=== PATIENT | male | born 1930 | race Caucasian/White ===

== ENCOUNTER 2017-07-30 23:45 | Inpatient (IN) | payer MEDICARE, OTHER ==
[~2017-07-30] VITALS: Ht 177.8 cm
[2017-07-31] MEDS ORDERED: SODIUM CHLORIDE 0.9% 1000ML 2,000 ML IV ONE (00:25)
[2017-07-31 00:39] LABS: CARBON DIOXIDE 30 mmol/L (21-32); CHLORIDE 100 mmol/L (101-111); CREATININE 1.3 mg/dL (0.5-1.5); GLOMERULAR FILTR. RATE CALC 56 mL/min (>60); GLUCOSE,RANDOM 103 mg/dL (70-105); POTASSIUM 4.6 mmol/L (3.5-5.1); SODIUM SERUM 137 mmol/L (136-145); UREA NITROGEN, BLOOD 18 mg/dL (7-18)
[2017-07-31 00:44] LABS: BASOPHILS % (AUTO) 0.5 % (0.0-5.0); EOSINOPHILS % (AUTO) 0.5 % (0.0-8.0); LYMPHOCYTES % (AUTO) 43.5 % (21.0-51.0); MEAN CORPUSCULAR HEMOGLOBIN 31.7 pg (27.0-33.0); MEAN CORPUSCULAR HGB CONC 33.5 g/dL (32.0-36.0); MEAN CORPUSCULAR VOLUME 94.4 fL (79-99); MONOCYTES % (AUTO) 2.5 % (3.0-13.0); PLATELET COUNT (AUTO) 155 K/uL (130-400); RED BLOOD CELL COUNT(AUTO) 4.24 MIL/uL (4.50-6.20); WHITE BLOOD COUNT (AUTO) 21.9 K/uL (4.8-10.8)
[2017-07-31 00:51] LABS: INR 0.97 (0.85-1.15); PARTIAL THROMBOPLASTIN TIME 24.5 SEC (26.3-35.5); PROTHROMBIN TIME 10.2 SEC (9.6-11.6)
[2017-07-31 00:53] LABS: ALANINE AMINOTRANSFERASE 31 U/L (12-78); ALBUMIN 3.8 g/dL (3.5-5.0); ASPARTATE AMINOTRANSFERASE 32 U/L (10-37); BILIRUBIN,TOTAL 0.5 mg/dL (0.2-1.0); CREATINE KINASE MB 1.4 ng/mL (0.5-3.6); CREATINE KINASE, TOTAL 102 U/L (21-232); MYOGLOBIN 52 ng/mL (10-92); TOTAL PROTEIN, SERUM 7.8 g/dL (6.0-8.3); TROPONIN I < 0.04 ng/mL (0.00-0.06)
[2017-07-31 01:51] LABS: APPEARANCE,URINE Clear (CLEAR); BILIRUBIN,URINE Negative (NEGATIVE); COLOR,URINE Yellow (YELLOW); GLUCOSE, URINE (UA) Negative (NEGATIVE); KETONES,URINE Negative (NEGATIVE); LEUKOCYTE ESTERASE ,URINE Negative (NEGATIVE); NITRATE,URINE Negative (NEGATIVE); OCCULT BLOOD,URINE Trace (NEGATIVE); PROTEIN,URINE POS 1+ (NEGATIVE); UROBILINOGEN,URINE 0.2 mg/dL (0.2-1.0)
[2017-07-31 02:13] LABS: BACTERIA,URINE None Seen /HPF (None Seen); MUCUS,URINE Moderate LPF (None Seen); RBC,URINE 0-1 /HPF (0-1); SQUAMOUS EPITHELIAL CELL,UR Moderate /HPF (0-2)
[2017-07-31] MEDS ORDERED: CEFTRIAXONE SODIUM 1 GM ONE (02:28)
[2017-07-31] MEDS ORDERED: SODIUM CHLORIDE 0.9% 500ML 500 ML IV ONE (02:28)
[2017-07-31] MEDS ORDERED: METHYLPREDNISOLONE SOD SUCC 40MG/ML 1ML ONE (02:53)
[2017-07-31] MEDS ORDERED: IPRATROPIUM/ALBUTEROL SULFATE 3 ML SOLUTION IH ONE (03:07)
[2017-07-31] MEDS ORDERED: LEVOFLOXACIN 500 MG/D5W 100 ML 100 ML ONE (03:58)
[2017-07-31] MEDS ORDERED: ACETAMINOPHEN 325 MG TAB ONE (04:05)
[2017-07-31] MEDS ORDERED: ACETAMINOPHEN-CODEINE ELIXIR 5 ML UDCUP PO PRN (05:15)
[2017-07-31] MEDS ORDERED: SODIUM CHLORIDE 0.9% 1000ML 1,000 ML IV SCH (05:15)
[2017-07-31] MEDS ORDERED: ACETAMINOPHEN 325 MG TAB PO PRN (05:15)
[2017-07-31 05:18] VITALS: BP 149/89
[2017-07-31] MEDS: HEPARIN SODIUM 5000UNIT/ML 1ML VIAL SQ SCH ×3 (05:37→22:51)
[2017-07-31] MEDS: IPRATROPIUM/ALBUTEROL SULFATE 3 ML SOLUTION IH SCH ×6 (06:41→23:28)
[2017-07-31 07:00] VITALS: BP 146/82
[2017-07-31 07:08] LABS: HEMATOCRIT 36.8 % (42-54); MEAN CORPUSCULAR HEMOGLOBIN 31.6 pg (27.0-33.0); MEAN CORPUSCULAR HGB CONC 33.7 g/dL (32.0-36.0); MEAN CORPUSCULAR VOLUME 93.9 fL (79-99); PLATELET COUNT (AUTO) 124 K/uL (130-400); RED BLOOD CELL COUNT(AUTO) 3.92 MIL/uL (4.50-6.20); RED CELL DISTRIBUTION WIDTH 13.8 % (11.0-15.5)
[2017-07-31 07:21] LABS: CREATININE 1.3 mg/dL (0.5-1.5); POTASSIUM 5.2 mmol/L (3.5-5.1)
[2017-07-31] MEDS: FAMOTIDINE 20MG TAB 20 MG TAB PO SCH ×2 (09:31→20:44)
[2017-07-31] MEDS: METHYLPREDNISOLONE SOD SUCC 125MG/2ML VIAL IVP SCH ×2 (09:31→15:30)
[2017-07-31 11:00] VITALS: BP 175/96
[2017-07-31] MEDS ORDERED: FURO20TA4 PO (12:24)
[2017-07-31] MEDS ORDERED: FINA1TAB13 PO (12:24)
[2017-07-31] MEDS ORDERED: LISI40TA4 PO (12:24)
[2017-07-31] MEDS ORDERED: ALLO300T2 PO (12:24)
[2017-07-31] MEDS ORDERED: TAMS0.4C32 PO (12:24)
[2017-07-31] MEDS ORDERED: MULT-1203 PO (12:24)
[2017-07-31] MEDS ORDERED: ATEN25TA PO (12:24)
[2017-07-31] MEDS ORDERED: SIMV10TA6 PO (12:24)
[2017-07-31 16:22] VITALS: BP 163/83
[2017-07-31] MEDS ORDERED: FINA5TAB41 PO (16:26)
[2017-07-31] MEDS ORDERED: MULT1TAB14 PO (16:26)
[2017-07-31 19:30] VITALS: BP 166/85
[2017-07-31] MEDS: TAMSULOSIN HCL 0.4 MG CAP.ER.24H PO SCH (20:43)
[2017-07-31] MEDS: ATORVASTATIN CALCIUM 10 MG TABLET PO SCH (20:43)
[2017-07-31] MEDS: IPRATROPIUM 0.5 MG/2.5 ML INH IH SCH (23:28)
[2017-07-31] MEDS: ALBUTEROL SULFATE 0.083% 2.5 MG/3 ML INH IH SCH (23:28)
[2017-08-01] VITALS (8 sets, daily range): BP systolic 152–186; BP diastolic 76–97
[2017-08-01] MEDS: LEVOFLOXACIN 500 MG/D5W 100 ML 100 ML IV SCH (05:25)
[2017-08-01 06:02] LABS: HEMATOCRIT 34.2 % (42-54); MEAN CORPUSCULAR HEMOGLOBIN 32.1 pg (27.0-33.0); MEAN CORPUSCULAR HGB CONC 34.1 g/dL (32.0-36.0); MEAN CORPUSCULAR VOLUME 94.1 fL (79-99); PLATELET COUNT (AUTO) 136 K/uL (130-400); RED BLOOD CELL COUNT(AUTO) 3.63 MIL/uL (4.50-6.20); RED CELL DISTRIBUTION WIDTH 14.2 % (11.0-15.5); WHITE BLOOD COUNT (AUTO) 22.6 K/uL (4.8-10.8)
[2017-08-01 06:17] LABS: ALBUMIN 2.9 g/dL (3.5-5.0); B-TYPE NATRIURETIC PEPTIDE 467 pg/mL (0-100); BILIRUBIN,TOTAL 0.7 mg/dL (0.2-1.0); CREATININE 1.3 mg/dL (0.5-1.5); POTASSIUM 4.2 mmol/L (3.5-5.1); TOTAL PROTEIN, SERUM 6.6 g/dL (6.0-8.3)
[2017-08-01] MEDS: HEPARIN SODIUM 5000UNIT/ML 1ML VIAL SQ SCH ×3 (06:32→22:34)
[2017-08-01] MEDS: IPRATROPIUM/ALBUTEROL SULFATE 3 ML SOLUTION IH SCH ×3 (06:44→18:00)
[2017-08-01] MEDS: LISINOPRIL 40 MG TABLET PO SCH (08:23)
[2017-08-01] MEDS: FUROSEMIDE 20 MG TABLET PO SCH (08:24)
[2017-08-01] MEDS: MULTIVITAMIN TABLET PO SCH (08:24)
[2017-08-01] MEDS: FAMOTIDINE 20MG TAB 20 MG TAB PO SCH ×2 (08:24→20:47)
[2017-08-01] MEDS: PREDNISONE 20 MG TABLET PO SCH (08:24)
[2017-08-01] MEDS: ATENOLOL 25 MG TABLET PO SCH (08:24)
[2017-08-01] MEDS: ZEAXANT PO SCH (08:30)
[2017-08-01] MEDS: MULTIVIT MIN PO SCH (08:30)
[2017-08-01] MEDS: LUTEIN PO SCH (08:30)
[2017-08-01] MEDS: [UNRECOGNIZED DRUG - OTHER] PO SCH (08:30)
[2017-08-01] MEDS: ALBUTEROL SULFATE 0.083% 2.5 MG/3 ML INH IH SCH ×2 (18:30→23:43)
[2017-08-01] MEDS: IPRATROPIUM 0.5 MG/2.5 ML INH IH SCH ×2 (18:30→23:43)
[2017-08-01] MEDS ORDERED: HYDRALAZINE HCL 20 MG/ML VIAL IV PRN (18:45)
[2017-08-01] MEDS: TAMSULOSIN HCL 0.4 MG CAP.ER.24H PO SCH (20:54)
[2017-08-01] MEDS: ATORVASTATIN CALCIUM 10 MG TABLET PO SCH (20:54)
[2017-08-02] VITALS: BP 166/93
[2017-08-02] MEDS: LISINOPRIL 40 MG TABLET PO SCH (04:01)
[2017-08-02] MEDS: FUROSEMIDE 20 MG TABLET PO SCH (04:01)
[2017-08-02] MEDS: ATENOLOL 25 MG TABLET PO SCH (04:01)
[2017-08-02] MEDS: LEVOFLOXACIN 500 MG/D5W 100 ML 100 ML IV SCH (04:26)
[2017-08-02 04:33] LABS: HEMATOCRIT 35.1 % (42-54); MEAN CORPUSCULAR HEMOGLOBIN 32.1 pg (27.0-33.0); MEAN CORPUSCULAR HGB CONC 34.4 g/dL (32.0-36.0); MEAN CORPUSCULAR VOLUME 93.4 fL (79-99); PLATELET COUNT (AUTO) 144 K/uL (130-400); RED BLOOD CELL COUNT(AUTO) 3.75 MIL/uL (4.50-6.20); WHITE BLOOD COUNT (AUTO) 22.4 K/uL (4.8-10.8)
[2017-08-02 04:47] LABS: CREATININE 1.3 mg/dL (0.5-1.5); POTASSIUM 4.2 mmol/L (3.5-5.1)
[2017-08-02] MEDS: ALBUTEROL SULFATE 0.083% 2.5 MG/3 ML INH IH SCH ×2 (06:01→11:44)
[2017-08-02] MEDS: IPRATROPIUM 0.5 MG/2.5 ML INH IH SCH ×2 (06:01→11:44)
[2017-08-02] MEDS: HEPARIN SODIUM 5000UNIT/ML 1ML VIAL SQ SCH (06:07)
[2017-08-02 08:00] VITALS: BP 167/88
[2017-08-02] MEDS: LUTEIN PO SCH (08:02)
[2017-08-02] MEDS: [UNRECOGNIZED DRUG - OTHER] PO SCH (08:02)
[2017-08-02] MEDS: ZEAXANT PO SCH (08:02)
[2017-08-02] MEDS: MULTIVIT MIN PO SCH (08:02)
[2017-08-02] MEDS: FAMOTIDINE 20MG TAB 20 MG TAB PO SCH (08:37)
[2017-08-02] MEDS: PREDNISONE 20 MG TABLET PO SCH (08:37)
[2017-08-02] MEDS: MULTIVITAMIN TABLET PO SCH (08:37)
== END 2017-08-02 12:33 | disposition home or self-care (01) | DRG 871 ==
LOC: EDH 23:45 → EDHIP 07-31 03:04 → OBSVTOIN 07-31 03:04 → 3DH 07-31 03:36
PROVIDERS: ADMIT Internal Medicine Nephrology; ATTEND Internal Medicine Nephrology
DX: A41.9 Sepsis, unspecified organism (principal); J18.9 Pneumonia, unspecified organism; J96.21 Acute and chronic respiratory failure with hypoxia; J44.0 Chronic obstructive pulmonary disease with (acute) lower respiratory infection; J44.1 Chronic obstructive pulmonary disease with (acute) exacerbation; Z99.81 Dependence on supplemental oxygen; E78.5 Hyperlipidemia, unspecified; I10 Essential (primary) hypertension; Z87.891 Personal history of nicotine dependence; H35.30 Unspecified macular degeneration; N40.0 Benign prostatic hyperplasia without lower urinary tract symptoms; Z60.2 Problems related to living alone; Z85.828 Personal history of other malignant neoplasm of skin; Z88.8 Allergy status to other drugs, medicaments and biological substances; Z82.49 Family history of ischemic heart disease and other diseases of the circulatory system
CPT/HCPCS: 36415; 71045; 80048; 80053; 81001; 82550; 82553; 83605; 83874; 83880; 84484; 85025; 85027; 85610; 85730; 87040; 87071; 87088; 87106; 87205; 93005; 94640; 94664; 99291; J0360; J0696; J1644; J1956; J2920; J2930; J7030; J7040

== ENCOUNTER 2017-10-08 08:48 | Emergency (ER) | payer MEDICARE ==
[~2017-10-08 08:48] MED LIST: ALLO300T2 PO; ATEN25TA PO; FINA5TAB41 PO; FURO20TA4 PO; LISI40TA4 PO; MULT-1203 PO; MULT1TAB14 PO; SIMV10TA6 PO; TAMS0.4C32 PO
== END 2017-10-08 10:12 | disposition home or self-care (01) ==
LOC: EDH 08:48
DX: S41.112A Laceration without foreign body of left upper arm, initial encounter (principal); I10 Essential (primary) hypertension; J44.9 Chronic obstructive pulmonary disease, unspecified; Z87.891 Personal history of nicotine dependence; Z88.1 Allergy status to other antibiotic agents; X58.XXXA Exposure to other specified factors, initial encounter; Y93.89 Activity, other specified; Y92.89 Other specified places as the place of occurrence of the external cause; Y99.8 Other external cause status
CPT/HCPCS: 99282

== ENCOUNTER 2018-06-26 07:08 | Observation (INO) | payer MEDICARE ==
[~2018-06-26] VITALS: Ht 177.8 cm; Wt 90.8 kg
[2018-06-26 07:47] LABS: BASOPHILS % (AUTO) 0.6 % (0.0-5.0); HEMATOCRIT 37.4 % (42-54); MEAN CORPUSCULAR HEMOGLOBIN 30.9 pg (27.0-33.0); MEAN CORPUSCULAR HGB CONC 33.4 g/dL (32.0-36.0); MEAN CORPUSCULAR VOLUME 92.6 fL (79-99); MONOCYTES % (AUTO) 3.6 % (3.0-13.0); NEUTROPHILS % (AUTO) 54.8 % (40.0-77.0); PLATELET COUNT (AUTO) 134 K/uL (130-400); RED BLOOD CELL COUNT(AUTO) 4.04 MIL/uL (4.50-6.20); RED CELL DISTRIBUTION WIDTH 14.8 % (11.0-15.5); WHITE BLOOD COUNT (AUTO) 14.7 K/uL (4.8-10.8)
[2018-06-26] MEDS ORDERED: PREDNISONE 20 MG TABLET ONE (08:01)
[2018-06-26 08:09] LABS: INR 1.03 (0.85-1.15); PARTIAL THROMBOPLASTIN TIME 31.8 SEC (26.3-35.5); PROTHROMBIN TIME 10.8 SEC (9.6-11.6)
[2018-06-26 08:20] LABS: CREATININE 1.4 mg/dL (0.5-1.5); POTASSIUM 4.4 mmol/L (3.5-5.1)
[2018-06-26] MEDS ORDERED: IPRATROPIUM/ALBUTEROL SULFATE 3 ML SOLUTION IH ONE ×4 (08:22→21:30)
[2018-06-26 08:33] LABS: ALBUMIN 3.1 g/dL (3.5-5.0); TOTAL PROTEIN, SERUM 7.5 g/dL (6.0-8.3)
[2018-06-26] MEDS ORDERED: LEVOFLOXACIN 750 MG/D5W 150 ML 150 ML ONE (09:06)
[2018-06-26 09:28] LABS: APPEARANCE,URINE Cloudy (CLEAR); BILIRUBIN,URINE Negative (NEGATIVE); COLOR,URINE Dark Yellow (YELLOW); GLUCOSE, URINE (UA) Negative (NEGATIVE); KETONES,URINE Negative (NEGATIVE); LEUKOCYTE ESTERASE ,URINE Negative (NEGATIVE); NITRATE,URINE Negative (NEGATIVE); OCCULT BLOOD,URINE Negative (NEGATIVE); PROTEIN,URINE POS 2+ (NEGATIVE)
[2018-06-26] MEDS: SODIUM CHLORIDE 0.9% 1000ML 1,000 ML IV SCH (10:00)
[2018-06-26] MEDS ORDERED: ZOSYN 3.375GM+NS 50ML 50 ML IV ONE ×3 (10:11→21:28)
[2018-06-26 10:20] LABS: AMORPHOUS SEDIMENT,UR Few /LPF (None Seen); BACTERIA,URINE Rare /HPF (None Seen); RBC,URINE 0-1 /HPF (0-1); SQUAMOUS EPITHELIAL CELL,UR Rare /HPF (0-2); WBC,URINE 0-1 /HPF (0-1)
[2018-06-26] MEDS: IPRATROPIUM/ALBUTEROL SULFATE 3 ML SOLUTION IH SCH ×3 (10:20→21:32)
[2018-06-26] MEDS ORDERED: METHYLPREDNISOLONE SOD SUCC 40MG/ML 1ML ONE ×2 (10:28→21:28)
[2018-06-26] MEDS ORDERED: ACETAMINOPHEN EXTRA STRENGTH 500 MG TABLET ONE (10:45)
[2018-06-26] MEDS: ZOSYN 3.375GM+NS 50ML 50 ML IV SCH (18:00)
[2018-06-26] MEDS: METHYLPREDNISOLONE SOD SUCC 40MG/ML 1ML IVP SCH (18:00)
[2018-06-26 22:12] VITALS: BP 165/89
[2018-06-26] MEDS ORDERED: PROP1DRO4 OU (22:28)
[2018-06-27 00:58] VITALS: BP 165/83
[2018-06-27] MEDS: IPRATROPIUM/ALBUTEROL SULFATE 3 ML SOLUTION IH SCH ×6 (01:40→21:22)
[2018-06-27] MEDS: METHYLPREDNISOLONE SOD SUCC 40MG/ML 1ML IVP SCH ×3 (02:43→18:27)
[2018-06-27] MEDS: ZOSYN 3.375GM+NS 50ML 50 ML IV SCH ×3 (02:43→18:27)
[2018-06-27 04:32] VITALS: BP 176/98
[2018-06-27] MEDS: SODIUM CHLORIDE 0.9% 1000ML 1,000 ML IV SCH (06:00)
[2018-06-27 07:00] VITALS: BP 153/87
[2018-06-27] MEDS: ARTIFICAL TEARS SOL 15 ML OU SCH (09:52)
[2018-06-27] MEDS: FINASTERIDE 5 MG TABLET PO SCH (09:53)
[2018-06-27] MEDS: LISINOPRIL 40 MG TABLET PO SCH (09:53)
[2018-06-27] MEDS: ALLOPURINOL 300 MG TABLET PO SCH (09:54)
[2018-06-27] MEDS: FUROSEMIDE 20 MG TABLET PO SCH (09:54)
[2018-06-27] MEDS: ATENOLOL 25 MG TABLET PO SCH (09:55)
[2018-06-27] MEDS: MULTIVITAMIN WITH MINERALS TABLET PO SCH (09:57)
[2018-06-27 11:00] VITALS: BP 155/87
[2018-06-27 16:00] VITALS: BP 162/93
[2018-06-27] MEDS: BUDESONIDE 0.5 MG/2 ML INH IH SCH (18:21)
[2018-06-27 19:25] VITALS: BP 157/82
[2018-06-27] MEDS ORDERED: TAMSULOSIN HCL 0.4 MG CAP.ER.24H PO SCH (21:00)
[2018-06-27] MEDS ORDERED: SIMVASTATIN 10 MG TABLET PO SCH (21:00)
[2018-06-28 00:18] VITALS: BP 151/80
[2018-06-28] MEDS: IPRATROPIUM/ALBUTEROL SULFATE 3 ML SOLUTION IH SCH ×2 (01:14→06:57)
[2018-06-28] MEDS: SODIUM CHLORIDE 0.9% 1000ML 1,000 ML IV SCH (01:41)
[2018-06-28] MEDS: METHYLPREDNISOLONE SOD SUCC 40MG/ML 1ML IVP SCH (01:41)
[2018-06-28] MEDS: ZOSYN 3.375GM+NS 50ML 50 ML IV SCH (01:42)
[2018-06-28 04:26] VITALS: BP 159/87
[2018-06-28] MEDS: BUDESONIDE 0.5 MG/2 ML INH IH SCH (06:57)
[2018-06-28 07:30] VITALS: BP 157/94
[2018-06-28] MEDS: LISINOPRIL 40 MG TABLET PO SCH (09:00)
[2018-06-28] MEDS: ATENOLOL 25 MG TABLET PO SCH (09:00)
[2018-06-28] MEDS: FINASTERIDE 5 MG TABLET PO SCH (09:00)
[2018-06-28] MEDS: ALLOPURINOL 300 MG TABLET PO SCH (09:00)
[2018-06-28] MEDS: FUROSEMIDE 20 MG TABLET PO SCH (09:00)
[2018-06-28] MEDS: ARTIFICAL TEARS SOL 15 ML OU SCH (09:00)
[2018-06-28] MEDS: MULTIVITAMIN WITH MINERALS TABLET PO SCH (09:00)
--- NOTE | 2018-06-28 09:55 | NUR ---
PATIENT DISCHARGED HOME CONTINUE ALL CURRENT HOME MEDS , and start the new PRESCRIPTION GIVEN TO YOU AT THE TIME OF DISCHARGE, continue to use NEBULIZER TREATMENTS and home oxygen as needed, try to remain in doors as much as possible> DC FOLLOW UP: WITH DR. TIERA MENDEZ IN 1-2 WEEKS CALL TO SET UP AN APPOINTMENT AT PHONE; [phone] CALL YOUR PRIMARY DOCTOR IF COUGH GETS WORSE AND NO IMPROVEMENT IS SEEN. CALL [phone] IF SHORTNESS OF BREATH OR CHEST PAIN DOES NOT RESOLVE WITH REST. MAKE SURE TO COMPLETE FULL COURSE OF ANTIBIOTIC TREATMENT TO PREVENT SUPER INFECTIONS. AND TO USE NEBULIZER TREATMENTS AND EXPECTORANTS PRESCRIBED BY YOUR ACCOUNTING PROFESSOR. IV REMOVED INTACT, AOX3, DENIES ANY QUESTIONS, STATES WELL EXPLAINED.
--- NOTE | 2018-06-28 10:45 | NUR ---
CM Note: Pt given BPCI letter. Dispo done.
== END 2018-06-28 10:05 | disposition home or self-care (01) ==
LOC: EDH 07:08 → EDHIP 09:37 → 3CH 20:08
PROVIDERS: ADMIT Internal Medicine; ATTEND Internal Medicine
DX: J44.1 Chronic obstructive pulmonary disease with (acute) exacerbation (principal); J18.9 Pneumonia, unspecified organism; J96.91 Respiratory failure, unspecified with hypoxia; Z87.891 Personal history of nicotine dependence; Z82.49 Family history of ischemic heart disease and other diseases of the circulatory system; Z88.8 Allergy status to other drugs, medicaments and biological substances; Z79.899 Other long term (current) drug therapy; Z79.01 Long term (current) use of anticoagulants
CPT/HCPCS: 36415; 71045; 80053; 81001; 82550; 82948 ×7; 83605 ×2; 83880; 84484; 85025; 85610; 85730; 87040 ×2; 87088; 87804 ×2; 93005; 94640 ×15; 94664; 96365; 96366; 96375; 96376 ×2; 99285; A4510; G0378 ×48; J1956; J2543 ×7; J2920 ×6

== ENCOUNTER 2020-07-21 04:37 | Observation (INO) | payer MEDICARE ==
[~2020-07-21] VITALS: Ht 154.9 cm; Wt 95.3 kg
[~2020-07-21 04:37] MED LIST changes: +AMLO10TA4 PO; -LISI40TA4 PO; +LISI40TA9 PO; +PROP1DRO4 OU; -SIMV10TA6 PO; +SIMV10TA97 PO
[2020-07-21 04:50] LABS: BASOPHILS % (AUTO) 0.3 % (0.0-5.0); EOSINOPHILS % (AUTO) 0.6 % (0.0-8.0); HEMATOCRIT 39.1 % (42-54); MEAN CORPUSCULAR HGB CONC 33.2 g/dL (32.0-36.0); MEAN CORPUSCULAR VOLUME 90.1 fL (79-99); MONOCYTES % (AUTO) 5.5 % (3.0-13.0); NEUTROPHILS % (AUTO) 35.3 % (40.0-77.0); PLATELET COUNT (AUTO) 104 K/uL (130-400); RED BLOOD CELL COUNT(AUTO) 4.34 MIL/uL (4.50-6.20); RED CELL DISTRIBUTION WIDTH 14.3 % (11.0-15.5); WHITE BLOOD COUNT (AUTO) 14.9 K/uL (4.8-10.8)
[2020-07-21 05:05] LABS: INR 0.96 (0.85-1.15); PROTHROMBIN TIME 10.5 SEC (9.6-11.6)
[2020-07-21 05:06] LABS: PARTIAL THROMBOPLASTIN TIME 22.8 SEC (26.3-35.5)
[2020-07-21 05:15] LABS: B-TYPE NATRIURETIC PEPTIDE 157 pg/mL (0-100)
[2020-07-21 05:24] LABS: CREATININE 1.1 mg/dL (0.5-1.5); POTASSIUM 5.8 mmol/L (3.5-5.1)
[2020-07-21 05:29] LABS: BILIRUBIN,TOTAL 0.6 mg/dL (0.2-1.0); TOTAL PROTEIN, SERUM 6.9 g/dL (6.0-8.3)
[2020-07-21 06:34] LABS: BASOPHILS % (AUTO) 0.4 % (0.0-5.0); EOSINOPHILS % (AUTO) 0.4 % (0.0-8.0); HEMATOCRIT 37.1 % (42-54); LYMPHOCYTES % (AUTO) 53.9 % (21.0-51.0); MEAN CORPUSCULAR HEMOGLOBIN 29.8 pg (27.0-33.0); MEAN CORPUSCULAR HGB CONC 32.9 g/dL (32.0-36.0); MEAN CORPUSCULAR VOLUME 90.7 fL (79-99); MONOCYTES % (AUTO) 5.4 % (3.0-13.0); NEUTROPHILS % (AUTO) 39.5 % (40.0-77.0); PLATELET COUNT (AUTO) 98 K/uL (130-400); RED BLOOD CELL COUNT(AUTO) 4.09 MIL/uL (4.50-6.20); RED CELL DISTRIBUTION WIDTH 14.4 % (11.0-15.5); WHITE BLOOD COUNT (AUTO) 16.6 K/uL (4.8-10.8)
[2020-07-21] MEDS ORDERED: ASPIRIN 325 MG TABLET ONE (07:40)
[2020-07-21] MEDS ORDERED: NITROGLYCERIN 1GM/1 INCH PACKET TD ONE (07:40)
[2020-07-21] MEDS ORDERED: POTASSIUM CHLORIDE 20MEQ/100ML 100 ML IV PRN ×2 (08:30)
[2020-07-21] MEDS ORDERED: LABETALOL 20 MG/4 ML DISP.SYRIN IV PRN (08:30)
[2020-07-21] MEDS ORDERED: DEXTROSE 50%-WATER 50 ML DISP.SYRIN IV PRN (08:30)
[2020-07-21] MEDS ORDERED: POTASSIUM CHLORIDE 20 MEQ ERTAB PO PRN (08:30)
[2020-07-21] MEDS ORDERED: POTASSIUM CHLORIDE 10% ELIXIR 20 MEQ/15 ML UDCUP PO PRN (08:30)
[2020-07-21] MEDS ORDERED: GLUCAGON 1MG KIT 1 MG ML IM PRN (08:30)
[2020-07-21] MEDS ORDERED: LIDOCAINE HCL-MPF 1% 2ML VIAL IV PRN ×2 (08:30)
[2020-07-21] MEDS ORDERED: MAGNESIUM 2GM PREMIX 50ML 50 ML IV PRN (08:30)
[2020-07-21] MEDS ORDERED: CALCIUM GLUCONATE 1 GM/10 ML VIAL IV ONE (08:41)
[2020-07-21] MEDS ORDERED: SODIUM POLYSTYRENE SULFONATE 15 GM/60 ML ML ONE (08:41)
[2020-07-21] MEDS ORDERED: SODIUM BICARB 50MEQ 50ML VIAL 50 ML ONE (08:41)
[2020-07-21] MEDS: ENOXAPARIN SODIUM 40 MG/0.4 ML SYRINGE SQ SCH (09:00)
[2020-07-21] MEDS: PANTOPRAZOLE SODIUM 40 MG TABLET.DR PO SCH (09:00)
[2020-07-21 10:33] LABS: APPEARANCE,URINE Clear (CLEAR); BILIRUBIN,URINE Negative (NEGATIVE); COLOR,URINE Yellow (YELLOW); GLUCOSE, URINE (UA) Negative (NEGATIVE); KETONES,URINE Negative (NEGATIVE); LEUKOCYTE ESTERASE ,URINE Trace (NEGATIVE); NITRATE,URINE Negative (NEGATIVE); OCCULT BLOOD,URINE Trace (NEGATIVE); PROTEIN,URINE 300 mg/dL (NEGATIVE)
[2020-07-21 10:39] LABS: BACTERIA,URINE Few /HPF (None Seen); RBC,URINE 0-1 /HPF (0-1); SQUAMOUS EPITHELIAL CELL,UR 0-2 /HPF (0-2)
[2020-07-21] MEDS ORDERED: PANTOPRAZOLE SODIUM 40 MG TABLET.DR ONE (12:42)
[2020-07-21] MEDS ORDERED: ENOXAPARIN SODIUM 40 MG/0.4 ML SYRINGE SQ ONE (12:42)
[2020-07-21] MEDS ORDERED: IOHEXOL-350 75 ML VIAL IV ONE (16:41)
[2020-07-21 23:28] VITALS: BP 209/98
[2020-07-22 05:00] LABS: HEMATOCRIT 38.8 % (42-54); MEAN CORPUSCULAR HEMOGLOBIN 29.5 pg (27.0-33.0); MEAN CORPUSCULAR VOLUME 92.2 fL (79-99); RED BLOOD CELL COUNT(AUTO) 4.21 MIL/uL (4.50-6.20); RED CELL DISTRIBUTION WIDTH 14.5 % (11.0-15.5); WHITE BLOOD COUNT (AUTO) 13.7 K/uL (4.8-10.8)
[2020-07-22 05:16] LABS: ALBUMIN 2.9 g/dL (3.5-5.0); BILIRUBIN,TOTAL 0.7 mg/dL (0.2-1.0); CREATININE 1.3 mg/dL (0.5-1.5); MAGNESIUM 3.1 mg/dL (1.80-2.40); POTASSIUM 4.2 mmol/L (3.5-5.1); TOTAL PROTEIN, SERUM 6.2 g/dL (6.0-8.3)
[2020-07-22] MEDS ORDERED: CLONIDINE HCL 0.2 MG TABLET PO SCH (06:15)
[2020-07-22] MEDS: INSULIN HUMULIN R 100 UNIT/ML 3ML SQ SCH ×4 (06:39→21:00)
[2020-07-22 08:00] VITALS: BP 156/97
[2020-07-22] MEDS: PANTOPRAZOLE SODIUM 40 MG TABLET.DR PO SCH (09:36)
[2020-07-22] MEDS: ENOXAPARIN SODIUM 40 MG/0.4 ML SYRINGE SQ SCH (09:37)
[2020-07-22] MEDS ORDERED: FUROSEMIDE 10 MG/ML 2ML VIAL IV SCH (11:00)
[2020-07-22] MEDS ORDERED: HYDRALAZINE HCL 20 MG/ML VIAL IV PRN (11:00)
[2020-07-22 12:00] VITALS: BP 143/87
[2020-07-22] MEDS ORDERED: AMLODIPINE BESYLATE 5 MG TAB PO SCH (13:15)
[2020-07-22] MEDS ORDERED: ATENOLOL 25 MG TABLET PO SCH (13:15)
[2020-07-22] MEDS: FUROSEMIDE 20 MG TABLET PO SCH ×2 (14:00→21:46)
[2020-07-22 15:22] VITALS: BP 163/100
[2020-07-22] MEDS: IPRATROPIUM/ALBUTEROL SULFATE 3 ML SOLUTION IH SCH (18:00)
[2020-07-22 19:40] VITALS: BP 194/114
[2020-07-22] MEDS ORDERED: TAMSULOSIN HCL 0.4 MG CAP.ER.24H PO SCH (21:00)
[2020-07-22] MEDS ORDERED: SIMVASTATIN 10 MG TABLET PO SCH (21:00)
[2020-07-23] VITALS: BP 166/83
[2020-07-23 04:05] VITALS: BP 180/94
[2020-07-23] MEDS: IPRATROPIUM/ALBUTEROL SULFATE 3 ML SOLUTION IH SCH ×2 (06:27→10:54)
[2020-07-23] MEDS: INSULIN HUMULIN R 100 UNIT/ML 3ML SQ SCH (06:34)
[2020-07-23 08:12] VITALS: BP 184/112
[2020-07-23] MEDS ORDERED: ATENOLOL 25 MG TABLET PO SCH (09:00)
[2020-07-23] MEDS ORDERED: MULTIVITAMIN TABLET PO SCH (09:00)
[2020-07-23] MEDS ORDERED: LEVOFLOXACIN 500 MG TABLET PO SCH (09:00)
[2020-07-23] MEDS: FUROSEMIDE 20 MG TABLET PO SCH (09:00)
[2020-07-23] MEDS ORDERED: LISINOPRIL 40 MG TABLET PO SCH (09:00)
[2020-07-23] MEDS ORDERED: HYDRALAZINE HCL 25 MG TABLET PO SCH (09:00)
[2020-07-23] MEDS ORDERED: FINASTERIDE 5 MG TABLET PO SCH (09:00)
[2020-07-23] MEDS ORDERED: ALLOPURINOL 300 MG TABLET PO SCH (09:00)
[2020-07-23] MEDS ORDERED: FUROSEMIDE 20 MG TABLET PO SCH (09:00)
[2020-07-23] MEDS ORDERED: AMLODIPINE BESYLATE 5 MG TAB PO SCH (09:00)
[2020-07-23] MEDS ORDERED: ICAPS MV PO SCH (09:00)
[2020-07-23] MEDS ORDERED: SYSTANE EYE OU SCH (09:00)
[2020-07-23] MEDS: ENOXAPARIN SODIUM 40 MG/0.4 ML SYRINGE SQ SCH (09:19)
[2020-07-23] MEDS ORDERED: FURO20TA4 PO (10:03)
[2020-07-23] MEDS ORDERED: HYDR-4153 PO (10:03)
[2020-07-23] MEDS ORDERED: LEVO500T89 PO (10:03)
[2020-07-23] MEDS ORDERED: LEVA15HF3 IH (10:03)
[2020-07-23] MEDS ORDERED: CLON0.1T PO (10:10)
[2020-07-23 10:17] VITALS: BP 178/96
[2020-07-23] MEDS ORDERED: CLONIDINE HCL 0.1 MG TABLET PO PRN (10:31)
[2020-07-23] MEDS: PANTOPRAZOLE SODIUM 40 MG TABLET.DR PO SCH (11:09)
[2020-07-23 12:00] VITALS: BP 160/99
== END 2020-07-23 13:07 | disposition home or self-care (01) ==
LOC: EDH 04:37 → EDHIP 08:30 → 4CH 22:51
PROVIDERS: ADMIT Internal Medicine Pulmonary Disease; ATTEND Internal Medicine Pulmonary Disease
DX: J44.1 Chronic obstructive pulmonary disease with (acute) exacerbation (principal); Z20.822 Contact with and (suspected) exposure to COVID-19; R00.2 Palpitations; R00.1 Bradycardia, unspecified; E87.5 Hyperkalemia; D72.829 Elevated white blood cell count, unspecified; I10 Essential (primary) hypertension; K21.9 Gastro-esophageal reflux disease without esophagitis; M10.9 Gout, unspecified; D69.6 Thrombocytopenia, unspecified; E66.9 Obesity, unspecified; E78.5 Hyperlipidemia, unspecified; N40.0 Benign prostatic hyperplasia without lower urinary tract symptoms; R06.02 Shortness of breath; Z85.828 Personal history of other malignant neoplasm of skin; Z99.81 Dependence on supplemental oxygen; Z87.891 Personal history of nicotine dependence; Z79.899 Other long term (current) drug therapy; Z88.1 Allergy status to other antibiotic agents; Z68.39 Body mass index [BMI] 39.0-39.9, adult
CPT/HCPCS: 36415 ×2; 71045; 71275; 80053 ×2; 81001; 82948 ×6; 83605; 83690; 83735 ×2; 83880; 84132; 84145; 84484 ×3; 85025 ×2; 85027; 85378; 85610; 85730; 87040 ×2; 87426; 93005 ×2; 93970; 94640 ×2; 94664; 96372 ×2; 96374; 99285; G0378 ×51; J0610; J1650 ×3; J3490; U0003; Q9967

== ENCOUNTER 2020-10-25 01:57 | Emergency (ER) | payer MEDICARE ==
[2020-10-25] VITALS (7 sets, daily range): BP systolic 137–221; BP diastolic 68–115
[~2020-10-25] VITALS: Ht 177.8 cm; Wt 95.3 kg
[~2020-10-25 01:57] MED LIST changes: +CLON0.1T PO; +HYDR-4153 PO; +LEVA15HF3 IH; +LEVO500T89 PO
[2020-10-25] MEDS ORDERED: LABETALOL 20MG VIAL IV ONE (02:15)
[2020-10-25] MEDS ORDERED: LABETALOL 20MG SYG IV ONE ×3 (02:30→04:30)
[2020-10-25 04:12] LABS: BASOPHILS % (AUTO) 0.5 % (0.0-5.0); EOSINOPHILS % (AUTO) 2.2 % (0.0-8.0); HEMATOCRIT 36.1 % (42-54); LYMPHOCYTES % (AUTO) 54.5 % (21.0-51.0); MEAN CORPUSCULAR HEMOGLOBIN 29.6 pg (27.0-33.0); MEAN CORPUSCULAR HGB CONC 31.6 g/dL (32.0-36.0); MEAN CORPUSCULAR VOLUME 93.8 fL (79-99); MONOCYTES % (AUTO) 7.5 % (3.0-13.0); PLATELET COUNT (AUTO) 134 K/uL (130-400); RED BLOOD CELL COUNT(AUTO) 3.85 MIL/uL (4.50-6.20); RED CELL DISTRIBUTION WIDTH 15.2 % (11.0-15.5); WHITE BLOOD COUNT (AUTO) 12.8 K/uL (4.8-10.8)
[2020-10-25 04:14] LABS: APPEARANCE,URINE Clear (CLEAR); BILIRUBIN,URINE Negative (NEGATIVE); COLOR,URINE Yellow (YELLOW); GLUCOSE, URINE (UA) Negative (NEGATIVE); KETONES,URINE Negative (NEGATIVE); LEUKOCYTE ESTERASE ,URINE Negative (NEGATIVE); NITRATE,URINE Negative (NEGATIVE); OCCULT BLOOD,URINE Negative (NEGATIVE); PH,URINE 7.5 (5.0-8.0); PROTEIN,URINE POS 1+ mg/dL (NEGATIVE); UROBILINOGEN,URINE 0.2 mg/dL (0.2-1.0)
[2020-10-25 04:24] LABS: CREATININE 1.1 mg/dL (0.5-1.5); POTASSIUM 4.6 mmol/L (3.5-5.1)
[2020-10-25 04:26] LABS: ALBUMIN 3.1 g/dL (3.5-5.0); BILIRUBIN,TOTAL 0.4 mg/dL (0.2-1.0); MAGNESIUM 1.7 mg/dL (1.80-2.40); TOTAL PROTEIN, SERUM 6.3 g/dL (6.0-8.3)
[2020-10-25] MEDS ORDERED: MAGNESIUM 2GM PREMIX 50ML 50 ML IV STA (04:46)
[2020-10-25] MEDS ORDERED: FUROSEMIDE 40MG VIAL IV ONE (05:00)
[2020-10-25 05:07] LABS: BACTERIA,URINE Rare /HPF (None Seen); RBC,URINE 0-1 /HPF (0-1); SQUAMOUS EPITHELIAL CELL,UR 0-2 /HPF (0-2)
[2020-10-25] MEDS ORDERED: DOXY100T2 PO (05:23)
[2020-10-25] MEDS ORDERED: MAGNESIUM 2GM PREMIX 50ML 50 ML IV ONE (05:24)
[2020-10-25] MEDS ORDERED: FUROSEMIDE 40MG VIAL ONE (05:24)
[2020-10-25] MEDS ORDERED: ESOM40CA PO (08:31)
[2020-10-25] MEDS ORDERED: TIOT4MIS3 IH (08:31)
[2020-10-25] MEDS ORDERED: CYAN-52 PO (08:31)
== END 2020-10-25 10:30 | disposition home or self-care (01) ==
LOC: EDH 02:26
DX: I10 Essential (primary) hypertension (principal); J44.9 Chronic obstructive pulmonary disease, unspecified; Z95.0 Presence of cardiac pacemaker; Z88.1 Allergy status to other antibiotic agents; Z79.899 Other long term (current) drug therapy
CPT/HCPCS: 36415; 71045; 80053; 81001; 82550; 83735; 84484; 85025; 93005; 96365; 96375; 96376; 99285; J1940; J3475; J3490

== ENCOUNTER 2020-11-02 02:09 | Emergency (ER) | payer MEDICARE ==
[~2020-11-02] VITALS: Ht 177.8 cm; Wt 95.3 kg
[~2020-11-02 02:09] MED LIST changes: +CYAN-52 PO; +DOXY100T2 PO; +ESOM40CA PO; +TIOT4MIS3 IH
[2020-11-02 02:11] VITALS: BP 180/86
[2020-11-02 02:19] VITALS: BP 167/88
== END 2020-11-02 02:50 | disposition left against medical advice (07) ==
LOC: EDH 02:09
DX: I10 Essential (primary) hypertension (principal); Z53.21 Procedure and treatment not carried out due to patient leaving prior to being seen by health care provider

== ENCOUNTER 2021-08-02 12:04 | Inpatient (IN) | payer MEDICARE ==
[~2021-08-02] VITALS: Ht 177.8 cm; Wt 94.1 kg
[~2021-08-02 12:04] MED LIST changes: -ATEN25TA PO; +CARB15DR OU; -DOXY100T2 PO; -FURO20TA4 PO; +FURO40TA5 PO; -HYDR-4153 PO; -LEVO500T89 PO; +LEVO500T90 PO; -LISI40TA9 PO; -MULT1TAB14 PO; +PRED20TA3 PO; +PROP10DR4 OU; -PROP1DRO4 OU; +TIMO.5OS OS
[2021-08-02 12:25] LABS: ABG BASE EXCESS 4.6 mmol/L (-2.0-3.0); ABG HCO3 28.5 mmol/L (21.0-28.0); ABG OXYGEN SATURATION 95.2 % (95.0-99.0); ABG PCO2 40 mmHg (35-48)
[2021-08-02 12:51] LABS: BASOPHILS % (AUTO) 0.2 % (0.0-5.0); MONOCYTES % (AUTO) 2.5 % (3.0-13.0); NEUTROPHILS % (AUTO) 52.9 % (40.0-77.0); RED CELL DISTRIBUTION WIDTH 14.6 % (11.0-15.5)
[2021-08-02 12:54] LABS: HEMATOCRIT 37.1 % (42-54); LYMPHOCYTES % (AUTO) 41.5 % (21.0-51.0); MEAN CORPUSCULAR HGB CONC 32.9 g/dL (32.0-36.0); MEAN CORPUSCULAR VOLUME 91.2 fL (79-99); PLATELET COUNT (AUTO) 181 K/uL (130-400); RED BLOOD CELL COUNT(AUTO) 4.07 MIL/uL (4.50-6.20)
[2021-08-02 12:59] LABS: WHITE BLOOD COUNT (AUTO) 32.3 K/uL (4.8-10.8)
[2021-08-02 13:08] LABS: CREATININE 1.6 mg/dL (0.5-1.5)
[2021-08-02 13:10] LABS: B-TYPE NATRIURETIC PEPTIDE 225 pg/mL (0-100)
[2021-08-02 13:11] LABS: APPEARANCE,URINE Clear (CLEAR); BILIRUBIN,URINE Negative (NEGATIVE); COLOR,URINE Yellow (YELLOW); GLUCOSE, URINE (UA) Negative (NEGATIVE); KETONES,URINE Negative (NEGATIVE); LEUKOCYTE ESTERASE ,URINE Negative (NEGATIVE); NITRATE,URINE Negative (NEGATIVE); OCCULT BLOOD,URINE Negative (NEGATIVE); PROTEIN,URINE Negative (NEGATIVE); UROBILINOGEN,URINE 0.2 mg/dL (0.2-1.0)
[2021-08-02 13:13] LABS: ALBUMIN 2.6 g/dL (3.5-5.0); BILIRUBIN,TOTAL 1.8 mg/dL (0.2-1.0); TOTAL PROTEIN, SERUM 6.8 g/dL (6.0-8.3)
[2021-08-02 13:27] LABS: LYMPHOCYTES % (MANUAL) 40 % (22-44); METAMYELOCYTES % 2 % (0-0); MONOCYTES % (MANUAL) 4 % (2-9); MYELOCYTES % 1 % (0-0); PROMYELOCYTES % 1 (0-0); SEGMENTED NEUTROPHILS % 52 % (40-70)
[2021-08-02 13:29] LABS: PLATELET MORPHOLOGY COMMENT ADEQUATE
[2021-08-02] MEDS ORDERED: 0.9%NACL 50ML 50 ML IV ONE (13:34)
[2021-08-02] MEDS ORDERED: 0.9%NACL 100ML 100 ML ONE (13:34)
[2021-08-02] MEDS: ZOSYN 3.375GM +NS 50ML IV SCH (13:39)
[2021-08-02] MEDS ORDERED: IOHEXOL 350 MG/ML 100ML INFUS..BTL IV ONE (14:24)
[2021-08-02] MEDS ORDERED: VANCOMYCIN KIT 1 GM/250 ML IV.KIT IV ONE (15:30)
[2021-08-02] MEDS ORDERED: LABETALOL 20MG SYG IV PRN (15:30)
[2021-08-02] MEDS ORDERED: ONDANSETRON 4MG INJ IVP PRN (15:30)
[2021-08-02] MEDS ORDERED: LACTULOSE 20 GM/30 ML UDCUP PO PRN (15:30)
[2021-08-02] MEDS ORDERED: ACETAMINOPHEN 325 MG TAB PO PRN (15:30)
[2021-08-02] MEDS ORDERED: HYDRALAZINE 20MG/ML VIAL IV PRN (15:30)
[2021-08-02] MEDS: INSULIN HUMULIN R 100 UNIT/ML 3ML SQ SCH ×2 (16:30→20:55)
[2021-08-02] MEDS: SOLU-MEDROL 40MG VIAL IVP SCH ×2 (16:48→23:57)
[2021-08-02] MEDS ORDERED: ALBU1.252 IH (18:28)
[2021-08-02] MEDS ORDERED: ATEN25TA PO (18:28)
[2021-08-02] MEDS ORDERED: HYDR-4153 PO (18:28)
[2021-08-02] MEDS ORDERED: VIT1CAPS5 PO (18:28)
[2021-08-02] MEDS ORDERED: SPIR25TA6 PO (18:28)
[2021-08-02] MEDS: BUDESONIDE 0.25 MG/2 ML INH IH SCH (18:37)
[2021-08-02] MEDS: ACETYLCYSTEINE 20% 200MG/ML 4ML VIAL NEB SCH ×2 (18:37→23:10)
[2021-08-02] MEDS: IPRATROPIUM/ALBUTEROL SULFATE 3 ML SOLUTION IH SCH ×2 (18:38→23:10)
[2021-08-02] MEDS ORDERED: ALBUTEROL 0.083% 2.5 MG/3 ML INH IH PRN (20:30)
[2021-08-02] MEDS: TAMSULOSIN HCL 0.4 MG CAP.ER.24H PO SCH (20:58)
[2021-08-02] MEDS: SIMVASTATIN 10 MG TABLET PO SCH (20:58)
[2021-08-02 21:15] VITALS: BP 137/67
[2021-08-03] VITALS: BP 149/67
[2021-08-03] MEDS: IPRATROPIUM/ALBUTEROL SULFATE 3 ML SOLUTION IH SCH ×6 (01:31→22:18)
[2021-08-03 04:00] VITALS: BP 139/64
[2021-08-03 05:13] LABS: CREATININE 1.4 mg/dL (0.5-1.5); MAGNESIUM 2.1 mg/dL (1.80-2.40); PHOSPHORUS 5.3 mg/dL (2.5-4.9); POTASSIUM 4.3 mmol/L (3.5-5.1); THYROID STIMULATING HORMONE 0.36 uIU/mL (0.36-3.74)
[2021-08-03] MEDS: ACETYLCYSTEINE 20% 200MG/ML 4ML VIAL NEB SCH ×3 (06:08→18:41)
[2021-08-03] MEDS: BUDESONIDE 0.25 MG/2 ML INH IH SCH ×2 (06:32→18:41)
[2021-08-03] MEDS: SOLU-MEDROL 40MG VIAL IVP SCH ×3 (06:39→23:41)
[2021-08-03 07:54] VITALS: BP 167/78
[2021-08-03] MEDS: PROPYLENE GLYCOL OU SCH (09:00)
[2021-08-03] MEDS: OLODATEROL HCL IH SCH (09:00)
[2021-08-03] MEDS: ARTIFICAL TEARS SOL 15 ML OU SCH (09:00)
[2021-08-03] MEDS: TIOTROPIUM BR IH SCH (09:00)
[2021-08-03] MEDS: MULTIVITAMIN TABLET PO SCH (11:11)
[2021-08-03] MEDS: FINASTERIDE 5 MG TABLET PO SCH (11:11)
[2021-08-03] MEDS: SPIRONOLACTONE 25 MG TAB PO SCH (11:12)
[2021-08-03] MEDS: ATENOLOL 25 MG TABLET PO SCH (11:12)
[2021-08-03] MEDS: FUROSEMIDE 40 MG TABLET PO SCH (11:12)
[2021-08-03] MEDS: PANTOPRAZOLE 40 MG TAB DR PO SCH (11:12)
[2021-08-03] MEDS: ALLOPURINOL 300 MG TABLET PO SCH (11:12)
[2021-08-03 12:00] VITALS: BP 168/85
[2021-08-03] MEDS: INSULIN HUMULIN R 100 UNIT/ML 3ML SQ SCH ×3 (12:46→21:16)
[2021-08-03] MEDS: HYDRALAZINE 25MG TABLET PO SCH (13:14)
[2021-08-03] MEDS: ENOXAPARIN SODIUM 30 MG/0.3 ML SQ SCH (13:16)
[2021-08-03] MEDS: ZOSYN 3.375GM +NS 50ML IV SCH (13:30)
[2021-08-03 16:00] VITALS: BP 149/72
[2021-08-03 20:00] VITALS: BP 156/75
[2021-08-03] MEDS: TAMSULOSIN HCL 0.4 MG CAP.ER.24H PO SCH (21:10)
[2021-08-03] MEDS: SIMVASTATIN 10 MG TABLET PO SCH (21:10)
[2021-08-04] VITALS: BP 154/69
[2021-08-04] MEDS: IPRATROPIUM/ALBUTEROL SULFATE 3 ML SOLUTION IH SCH ×6 (02:04→23:07)
[2021-08-04] MEDS: ACETYLCYSTEINE 20% 200MG/ML 4ML VIAL NEB SCH ×5 (02:04→23:07)
[2021-08-04 04:00] VITALS: BP 153/73
[2021-08-04 05:29] LABS: BASOPHILS % (AUTO) 0.1 % (0.0-5.0); HEMATOCRIT 35.3 % (42-54); LYMPHOCYTES % (AUTO) 46.6 % (21.0-51.0); MEAN CORPUSCULAR HEMOGLOBIN 29.5 pg (27.0-33.0); MEAN CORPUSCULAR HGB CONC 32.6 g/dL (32.0-36.0); MEAN CORPUSCULAR VOLUME 90.5 fL (79-99); MONOCYTES % (AUTO) 0.9 % (3.0-13.0); NEUTROPHILS % (AUTO) 50.9 % (40.0-77.0); PLATELET COUNT (AUTO) 177 K/uL (130-400); RED CELL DISTRIBUTION WIDTH 14.5 % (11.0-15.5); WHITE BLOOD COUNT (AUTO) 27.1 K/uL (4.8-10.8)
[2021-08-04 06:06] LABS: ALBUMIN 2.2 g/dL (3.5-5.0); BILIRUBIN,TOTAL 0.6 mg/dL (0.2-1.0); CREATININE 1.4 mg/dL (0.5-1.5); POTASSIUM 4.4 mmol/L (3.5-5.1); TOTAL PROTEIN, SERUM 6.3 g/dL (6.0-8.3)
[2021-08-04] MEDS: SOLU-MEDROL 40MG VIAL IVP SCH ×2 (06:47→16:51)
[2021-08-04] MEDS: BUDESONIDE 0.25 MG/2 ML INH IH SCH ×2 (06:52→17:08)
[2021-08-04] MEDS: INSULIN HUMULIN R 100 UNIT/ML 3ML SQ SCH ×4 (06:56→21:06)
[2021-08-04 07:53] VITALS: BP 150/83
[2021-08-04] MEDS: OLODATEROL HCL IH SCH (09:00)
[2021-08-04] MEDS: ARTIFICAL TEARS SOL 15 ML OU SCH (09:00)
[2021-08-04] MEDS: PROPYLENE GLYCOL OU SCH (09:00)
[2021-08-04] MEDS: TIOTROPIUM BR IH SCH (09:00)
[2021-08-04] MEDS: ALLOPURINOL 300 MG TABLET PO SCH (09:09)
[2021-08-04] MEDS: ENOXAPARIN SODIUM 30 MG/0.3 ML SQ SCH (09:09)
[2021-08-04] MEDS: FUROSEMIDE 40 MG TABLET PO SCH (09:10)
[2021-08-04] MEDS: FINASTERIDE 5 MG TABLET PO SCH (09:10)
[2021-08-04] MEDS: ATENOLOL 25 MG TABLET PO SCH (09:10)
[2021-08-04] MEDS: PANTOPRAZOLE 40 MG TAB DR PO SCH (09:10)
[2021-08-04] MEDS: HYDRALAZINE 25MG TABLET PO SCH (09:10)
[2021-08-04] MEDS: SPIRONOLACTONE 25 MG TAB PO SCH (09:10)
[2021-08-04] MEDS: MULTIVITAMIN TABLET PO SCH (09:10)
[2021-08-04 12:00] VITALS: BP 138/82
[2021-08-04] MEDS: ZOSYN 3.375GM +NS 50ML IV SCH (13:30)
[2021-08-04 16:00] VITALS: BP 142/76
[2021-08-04 20:09] VITALS: BP 157/80
[2021-08-04] MEDS: SIMVASTATIN 10 MG TABLET PO SCH (20:25)
[2021-08-04] MEDS: TAMSULOSIN HCL 0.4 MG CAP.ER.24H PO SCH (20:25)
[2021-08-05] MEDS: IPRATROPIUM/ALBUTEROL SULFATE 3 ML SOLUTION IH SCH ×2 (02:06→06:35)
[2021-08-05 02:13] VITALS: BP 174/82
[2021-08-05 04:07] LABS: HEMATOCRIT 40.2 % (42-54); LYMPHOCYTES % (AUTO) 47.6 % (21.0-51.0); MEAN CORPUSCULAR HEMOGLOBIN 29.7 pg (27.0-33.0); MEAN CORPUSCULAR HGB CONC 31.3 g/dL (32.0-36.0); MEAN CORPUSCULAR VOLUME 94.8 fL (79-99); MONOCYTES % (AUTO) 1.4 % (3.0-13.0); NEUTROPHILS % (AUTO) 49.7 % (40.0-77.0); PLATELET COUNT (AUTO) 180 K/uL (130-400); RED BLOOD CELL COUNT(AUTO) 4.24 MIL/uL (4.50-6.20); RED CELL DISTRIBUTION WIDTH 14.6 % (11.0-15.5)
[2021-08-05 04:23] LABS: WHITE BLOOD COUNT (AUTO) 36.4 K/uL (4.8-10.8)
[2021-08-05 04:27] VITALS: BP 160/89
[2021-08-05 04:59] LABS: ALBUMIN 2.4 g/dL (3.5-5.0); BILIRUBIN,TOTAL 0.6 mg/dL (0.2-1.0); CREATININE 1.3 mg/dL (0.5-1.5); MAGNESIUM 2.4 mg/dL (1.80-2.40); PHOSPHORUS 4.9 mg/dL (2.5-4.9); POTASSIUM 5.1 mmol/L (3.5-5.1); TOTAL PROTEIN, SERUM 6.8 g/dL (6.0-8.3)
[2021-08-05 05:33] LABS: LYMPHOCYTES % (MANUAL) 61 % (22-44); SEGMENTED NEUTROPHILS % 39 % (40-70)
[2021-08-05 05:34] LABS: MAN.DIFF COMMENT-IMPRESSION MANUAL DIFFERENTIAL
[2021-08-05 05:35] LABS: PLATELET MORPHOLOGY COMMENT ADEQUATE
[2021-08-05] MEDS: INSULIN HUMULIN R 100 UNIT/ML 3ML SQ SCH ×2 (06:09→11:12)
[2021-08-05] MEDS: BUDESONIDE 0.25 MG/2 ML INH IH SCH (06:35)
[2021-08-05] MEDS: ACETYLCYSTEINE 20% 200MG/ML 4ML VIAL NEB SCH (06:35)
[2021-08-05 08:17] VITALS: BP 142/72
[2021-08-05] MEDS: OLODATEROL HCL IH SCH (09:00)
[2021-08-05] MEDS: ARTIFICAL TEARS SOL 15 ML OU SCH (09:00)
[2021-08-05] MEDS: PROPYLENE GLYCOL OU SCH (09:00)
[2021-08-05] MEDS ORDERED: PREDNISONE 20 MG TABLET PO SCH (09:00)
[2021-08-05] MEDS: TIOTROPIUM BR IH SCH (09:00)
[2021-08-05] MEDS: ENOXAPARIN SODIUM 30 MG/0.3 ML SQ SCH (10:08)
[2021-08-05] MEDS: PANTOPRAZOLE 40 MG TAB DR PO SCH (10:09)
[2021-08-05] MEDS: ALLOPURINOL 300 MG TABLET PO SCH (10:09)
[2021-08-05] MEDS: SPIRONOLACTONE 25 MG TAB PO SCH (10:09)
[2021-08-05] MEDS: HYDRALAZINE 25MG TABLET PO SCH (10:09)
[2021-08-05] MEDS: FINASTERIDE 5 MG TABLET PO SCH (10:09)
[2021-08-05] MEDS: MULTIVITAMIN TABLET PO SCH (10:09)
[2021-08-05] MEDS: FUROSEMIDE 40 MG TABLET PO SCH (10:10)
[2021-08-05] MEDS: ATENOLOL 25 MG TABLET PO SCH (10:10)
[2021-08-05 11:16] VITALS: BP 148/79
== END 2021-08-05 12:19 | disposition home or self-care (01) | DRG 871 ==
LOC: EDH 12:04 → EDHIP 15:18 → OBSVTOIN 17:00 → 3AH 21:15
PROVIDERS: ADMIT Internal Medicine; ATTEND Internal Medicine
DX: A41.9 Sepsis, unspecified organism (principal); J15.6 Pneumonia due to other Gram-negative bacteria; C95.10 Chronic leukemia of unspecified cell type not having achieved remission; I13.0 Hypertensive heart and chronic kidney disease with heart failure and stage 1 through stage 4 chronic kidney disease, or unspecified chronic kidney disease; N17.9 Acute kidney failure, unspecified; D64.9 Anemia, unspecified; N18.32 Chronic kidney disease, stage 3b; J43.9 Emphysema, unspecified; Z20.822 Contact with and (suspected) exposure to COVID-19; I50.9 Heart failure, unspecified; M10.9 Gout, unspecified; I25.10 Atherosclerotic heart disease of native coronary artery without angina pectoris; Z95.810 Presence of automatic (implantable) cardiac defibrillator; K21.9 Gastro-esophageal reflux disease without esophagitis; Z85.828 Personal history of other malignant neoplasm of skin; Z87.891 Personal history of nicotine dependence; Z82.49 Family history of ischemic heart disease and other diseases of the circulatory system; Z79.899 Other long term (current) drug therapy; Z99.81 Dependence on supplemental oxygen
CPT/HCPCS: 36415; 71045; 71275; 80048; 80053; 81003; 82550; 82803; 82948; 83605; 83735; 83880; 84100; 84145; 84443; 84484; 85025; 85378; 87040; 87071; 87077; 87088; 87186; 87205; 87635; 87804; 93005; 93306; 93970; 94640; 94664; 94667; 94668; 99291; C9803; G0378; J1650; J1815; J2543; J2920; J3370; J7608; Q9967